=== PATIENT | female | born 2000 | race Caucasian/White ===

== ENCOUNTER 2018-08-11 17:52 | Emergency (ER) | payer OTHER ==
[~2018-08-11] VITALS: Ht 172.7 cm; Wt 67.0 kg
[2018-08-11 17:55] VITALS: BP 110/70; PULSE 76; RESP 19; Ht 172.7 cm; Wt 67.0 kg
[2018-08-11] MEDS ORDERED: BECL10.6 IH (20:32)
[2018-08-11] MEDS ORDERED: D-ME118S24 PO (20:32)
--- NOTE | 2018-08-12 02:35 | ERD ---
ER Documentation Chief Complaint Chief Complaint productive cough x 2 weeks HPI 18-year-old female presents for cough times 2 weeks. Patient states that the cough has been productive of greenish phlegm. States that she coughs more with lying down. She denies any fevers or chills. She denies abdominal pain, nause a, vomiting. She denies chest pain or shortness of breath. She took ibuprofen,, NyQuil, DayQuil without mild relief. ROS All systems reviewed and are negative except as per history of present illness. Medications Home Meds Active Scripts D-Methorphan Hb/P-Epd HCl/Bpm (Stoqmhggry-Wlgtolxmnti-Hg Syr) 118 Ml Syrup, 5 ML PO Q4H PRN for COUGH for 5 Days, #1 BOTTLE Prov:JOAQUIN BACH 08/11/18 Beclomethasone Dipropionate (Qvar Redihaler (40 MCG)) 10.6 Gm Hfa.aeroba, 10.6 GM IH BID for cough, #1 INH Prov:JOAQUIN BACH DO 08/11/18 Allergies Allergies: Coded Allergies: No Known Allergy (Unverified , 09/20/11) PMhx/Soc History of Surgery: No Anesthesia Reaction: No Hx Neurological Disorder: No Hx Respiratory Disorders: No Hx Cardiac Disorders: No Hx Psychiatric Problems: No Hx Miscellaneous Medical Probl: No Hx Alcohol Use: No Hx Substance Use: No Hx Tobacco Use: No Smoking Status: Never smoker Physical Exam Vitals Vital Signs Date Temp Pulse Resp B/P (MAP) Pulse Ox O2 O2 Flow FiO2 Time Delivery Rate 08/11/18 98.0 76 19 110/70 100 17:55 (83) Physical Exam Const: No acute distress Head: Atraumatic Eyes: Normal Conjunctiva ENT: Normal External Ears, bilateral tympanic membrane intact without erythema or bulging noted, nose and Mouth examination normal, no tonsillar swelling or exudate noted Neck: Full range of motion. No meningismus. Resp: Clear to auscultation bilaterally, no wheezing, rales, rhonchi Cardio: Regular rate and rhythm, no murmurs Skin: No petechiae or rashes Ext: No cyanosis, or edema Neur: Awake and alert Psych: Normal Mood and Affect Procedures/MDM Medical Decision Making: Differential diagnosis includes but not limited to upper respiratory infection, pneumonia, sepsis, postnasal drip, asthma, pulmonary embolism. Patient appeared well on physical examination, nontoxic appearing. Lungs were clear to auscultation bilaterally. There is low suspicion for pneumonia, sepsis. Low suspicion for pulmonary embolism given no chest pain and lack of risk factors. Patient likely has an upper respiratory infection, likely viral. Discussed symptomatic treatment with patient who agrees with plan. Patient given prescription for Bromfed and Qvar. Patient advised to follow up with PCP in 1-2 days. Patient advised to return to ED for new or worsening symptoms. Patient stable on discharge from the ED. Disclaimer: Inadvertent spelling and grammatical errors are likely due to EHR/dictation software use and do not reflect on the overall quality of patient care. Also, please note that the electronic time recorded on this note does not necessarily reflect the actual time of the patient encounter. Departure Diagnosis: Primary Impression: Cough Condition: Fair Patient Instructions: Cough, Chronic, Uncertain Cause, (Adult) Referrals: [facility] YOU HAVE RECEIVED A MEDICAL SCREENING EXAM AND THE RESULTS INDICATE THAT YOU DO NOT HAVE A CONDITION THAT REQUIRES URGENT TREATMENT IN THE EMERGENCY DEPARTMENT. FURTHER EVALUATION AND TREATMENT OF YOUR CONDITION CAN WAIT UNTIL YOU ARE SEEN IN YOUR DOCTORS OFFICE WITHIN THE NEXT 1-2 DAYS. IT IS YOUR RESPONSIBILITY TO MAKE AN APPOINTMENT FOR FOLOW-UP CARE. IF YOU HAVE A PRIMARY DOCTOR --you should call your primary doctor and schedule an appointment IF YOU DO NOT HAVE A PRIMARY DOCTOR YOU CAN CALL OUR PHYSICIAN REFERRAL HOTLINE AT IF YOU CAN NOT AFFORD TO SEE A PHYSICIAN YOU CAN CHOSE FROM THE FOLLOWING [facility] [address] [facility]. [facility] [address] [facility]. [facility] [address] [facility] [facility] [address] [facility] [facility] [address] [facility]. [facility]. [address] Additional Instructions: Call your primary care doctor TOMORROW for an appointment during the next 1-2 days.See the doctor sooner or return here if your condition worsens before your appointment time. JOAQUIN BACH DO Aug 12, 2018 02:35
== END 2018-08-11 20:55 | disposition home or self-care (01) ==
LOC: FTE 17:52
DX: R05 Cough (principal)
CPT/HCPCS: 99283